=== PATIENT | female | born 1990 | race Two or more races ===

== ENCOUNTER → 2024-03-24 | Emergency (ER) | payer OTHER ==
[~2024-03-24] VITALS: Ht 157.5 cm; Wt 95.3 kg
[2024-03-24 10:19] LABS: HEMATOCRIT 29.4 % (36.0-45.00); HEMOGLOBIN 9.8 g/dL (12.0-15.00); MEAN CELL VOLUME 79.1 fL (80.00-100.00); MEAN CORPUSCULAR HEMOGLOBIN 26.4 pg (27.00-32.0); MEAN CORPUSCULAR HGB CONC 33.4 g/dl (32.0-36.0); PLATELET COUNT 514 K/uL (150-450); RED BLOOD COUNT 3.72 M/uL (4.00-6.00); RED CELL DISTRIBUTION WIDTH 15.2 % (11.5-14.5)
[2024-03-24 10:21] LABS: URINE APPEARANCE Clear; URINE BILIRRUBIN Negative (NEGATIVE); URINE BLOOD Small; URINE COLOR Yellow; URINE GLUCOSE Negative (NEGATIVE); URINE KETONE Negative (NEGATIVE); URINE LEUKOCYTE Negative; URINE NITRATE Negative; URINE PROTEIN Negative (NEGATIVE); URINE UROBILINOGEN 0.2 E.U./dl
[2024-03-24 10:23] LABS: URINE BACTERIA 95.7 uL (0.0-1933); URINE EPITHELIAL CELLS 9.9 uL (0.0-38.8); URINE RBC 43.9 uL (0.0-20.8)
[2024-03-24 10:42] LABS: URINE CAST 0.61 uL (0.0-1.40)
[2024-03-24 11:00] LABS: CALCIUM 9.5 mg/dL (8.5-10.1); CREATININE SERUM 0.67 mg/dL (0.55-1.02); GFR 99.59; POTASSIUM 4.21 mEq/L (3.5-5.1)
== END | disposition home or self-care (01) ==
LOC: ER 09:14
PROVIDERS: General Practice
DX: R53.81 Other malaise (principal); R53.1 Weakness

== ENCOUNTER → 2024-05-15 | Emergency (ER) | payer OTHER ==
[~2024-05-15] VITALS: Ht 157.5 cm; Wt 97.5 kg
[~2024-05-15] MED LIST: FERROUS GLUCON324 M2 PO
[2024-05-15 21:26] LABS: HEMATOCRIT 31.9 % (36.0-45.00); HEMOGLOBIN 10.4 g/dL (12.0-15.00); MEAN CELL VOLUME 80.3 fL (80.00-100.00); MEAN CORPUSCULAR HEMOGLOBIN 26.1 pg (27.00-32.0); MEAN CORPUSCULAR HGB CONC 32.5 g/dl (32.0-36.0); PLATELET COUNT 472 K/uL (150-450); RED BLOOD COUNT 3.98 M/uL (4.00-6.00); RED CELL DISTRIBUTION WIDTH 16.2 % (11.5-14.5)
[2024-05-15 21:56] LABS: INR 0.94; PARTIAL THROMBOPLASTIN TIME 27.2 SECONDS (22.0-34.0); PROTHROMBIN TIME 10.3 SECONDS (9.0-11.5)
[2024-05-15 21:57] LABS: CALCIUM 9.3 mg/dL (8.5-10.1); CREATININE SERUM 0.83 mg/dL (0.55-1.02); GFR 77.78; POTASSIUM 4.03 mEq/L (3.5-5.1)
== END | disposition home or self-care (01) ==
LOC: ER 20:36
PROVIDERS: General Practice
DX: N93.8 Other specified abnormal uterine and vaginal bleeding (principal)